=== PATIENT | female | born 2000 ===

== ENCOUNTER 2018-08-28 18:37 | Outpatient (CLI) | payer MEDICAID ==
[~2018-08-28] VITALS: Ht 160 cm; Wt 0.0 kg
[2018-08-28 18:44] VITALS: Ht 160 cm; Wt 0.0 kg
[2018-08-28 19:37] LABS: HEMATOCRIT 36.3 % (36.0-48.0); HEMOGLOBIN 11.9 g/dL (12-16); MCH 31.2 pg (26.0-34.0); MCHC 32.8 g/dL (31.0-37.0); MCV 95.3 fL (80.0-100.0); MEAN PLATELET VOLUME 10.8 fL (7.4-10.4); PLATELET COUNT 215 10x3/uL (130-400); RBC 3.81 10x6/uL (4.00-5.40); RDW 13.5 % (11.5-14.5); WBC 7.6 10x3/uL (4.8-10.8)
[2018-08-28 19:56] LABS: ALBUMIN 3.6 g/dL (3.4-5.0); ALKALINE PHOSPHATASE 67 U/L (46-116); ALT (SGPT) 31 U/L (10-68); BILIRUBIN - TOTAL 0.13 mg/dL (0.2-1.3); CALC OSMOLALITY 287 mosm/kg (275-300); CALCIUM 8.4 mg/dL (8.5-10.1); CARBON DIOXIDE 24.8 mmol/L (21.0-32.0); CHLORIDE - SERUM 110 mmol/L (98-107); CREATININE - SERUM 0.8 mg/dL (0.6-1.3); GLUCOSE 96 mg/dL (74-106); POTASSIUM - SERUM 4.1 mmol/L (3.5-5.1); PROTEIN - SERUM 6.8 g/dL (6.4-8.2); SODIUM 144 mmol/L (136-145); UREA NITROGEN 15 mg/dL (7-18); eGFR NON AFRICAN AMERICAN > 90 mL/min (90-120)
[2018-08-28 20:03] LABS: HCG - QUANTITATIVE (MATERNAL) 190 mIU/mL
[2018-08-28 21:53] LABS: EOSINOPHILS 9 % (0-7); LYMPHOCYTES 59 % (15-50); MONOCYTES 3 % (2-11); NEUTROPHILS 28 % (40-80); PLATELET ESTIMATE NORMAL
[2018-08-28 22:17] LABS: APPEARANCE CLEAR (CLEAR); BILIRUBIN NEGATIVE (NEGATIVE); COLOR YELLOW (YELLOW); GLUCOSE NEGATIVE (NEGATIVE); KETONE NEGATIVE (NEGATIVE); NITRITE NEGATIVE (NEGATIVE); PROTEIN NEGATIVE (NEGATIVE); SPECIFIC GRAVITY 1.025 (1.005-1.020); UROBILINOGEN NORMAL (NORMAL)
[2018-08-28 22:19] LABS: BACTERIA FEW /hpf (NONE SEEN); RED CELLS - URINE 0-5 /hpf (0-5)
[2018-08-28 22:48] VITALS: BP 124/76
--- NOTE | 2018-08-28 23:13 | NUR ---
PT TO ROOM 1227-B TO OBSERVE POST-ADMINISTRATION CYTOTEC AND TORADOL. PT ALERT, ORIENTED X3, RELAYS PASSING TISSUE TONIGHT AFTER 5 DAYS VAGINAL BLEEDING. PT GIVEN GOWN, UNIT/ROOM/TV ORIENTATION PROVIDED. CALL LIGHT IN EASY REACH, WILL MONITOR.
--- NOTE | 2018-08-28 23:16 | NUR ---
VS 113/71, HR 67, RR 16. COLOR PINK, SKIN WARM AND DRY, CONVERSANT, RESP EVEN AND UNLABORED, CAP REFILL LESS THAN 3 SEC TO Walt NICHOLE. CONTINUE TO MONITOR. PLAN TO MONITOR FOR A FEW HOURS AND REPORT TO DR COHN IN ER.
--- NOTE | 2018-08-28 23:40 | NUR ---
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 NO ORDERS PRESENT. PHONED DR MARCIAL TO MAKE AWARE OF PT ON UNIT AND PRELIMINARY RADIOGRAPHIC REPORT PER DR LUCIO AT 210. DR MARCIAL ASKS TO BE TRANSFERRED TO PT ROOM IN 1227-B TO DISCUSS PT HISTORY AND CURRENT STATUS-SAME DONE. CONFIRMED PT ANSWERED PHONE.
--- NOTE | 2018-08-29 00:03 | NUR ---
Tiburcio VALVERDE, RN RELAYS TELEPHONE MESSAGE FROM DR MARCIAL STATING INPUTTING ORDERS FOR DC AND HAS PHONED IN HOME PRESCRIPTIONS TO PHARMACY OF CHOICE PER PT REQUEST. WILL PREPARE PT FOR DC AT FIRST AVAILABILITY.
--- NOTE | 2018-08-29 00:28 | NUR ---
DC INSTRUCTIONS REVIEWED WITH PT, HANDOUT PROVIDED FOR REFERRAL. PT INFORMED TO GEOLOGICAL ENGINEER ORDERED MEDICATIONS FROM PHARMACY SHE PROVIDED TO DR MARCIAL VIA TELEPHONE. PT STATES UNDERSTANDING. EMOTIONAL SUPPORT PROVIDED, PT OOB TO GET DRESSED.
--- NOTE | 2018-08-29 00:34 | NUR ---
AMBULATORY FROM UNIT WITH SIGNIFICANT OTHER, NAD NOTED, STABLE CONDITION.
== END 2018-08-29 00:34 | disposition home or self-care (01) ==
LOC: D.LDO 18:37 → D.ER 18:37 → D.LD 18:37 → D.ER 22:52 → D.LD 23:10 → EDSTATUS 23:47 → D.LDO 23:50
PROVIDERS: Emergency Medicine
DX: O03.9 Complete or unspecified spontaneous abortion without complication (principal)